=== PATIENT | female | born 1995 | race African-American/Black ===

== ENCOUNTER 2023-09-29 15:28 | Emergency (ER) | payer MEDICAID ==
[~2023-09-29] VITALS: Ht 157.5 cm; Wt 52.3 kg
[2023-09-29 15:48] VITALS: O2SAT 100
[2023-09-29] MEDS ORDERED: IBUP-2029 MT (16:46)
[2023-09-29 17:34] VITALS: BP 143/96; PULSE 74; RESP 20; TEMP 98.2
[2023-09-29] MEDS: KETOROLAC 30MG/ML VIAL IM ONE (17:34)
== END 2023-09-29 17:40 | disposition home or self-care (01) ==
LOC: ER 15:28
DX: S46.312A Strain of muscle, fascia and tendon of triceps, left arm, initial encounter (principal); X58.XXXA Exposure to other specified factors, initial encounter; Y93.89 Activity, other specified; Y92.39 Other specified sports and athletic area as the place of occurrence of the external cause; Y99.8 Other external cause status
CPT/HCPCS: 81025; 96372; 99283; J1885; Z7610